=== PATIENT | female | born 1995 | race Caucasian/White ===

== ENCOUNTER 2020-04-11 10:25 | Outpatient (CLI) | payer BC, SELFPAY ==
[2020-04-11 11:18] LABS: Add Urine Microscopic? YES; Appearance Urine Clear (Clear); Bilirubin Urine Negative (Negative); Blood Urine 2+ (Negative); Color Urine Yellow (Yellow); Glucose Urine UA Negative (Negative); Ketones Urine Negative (Negative); Leukocyte Esterase Ur Negative LEU/UL (NEGATIVE); Mucus Urine Rare /lpf; Nitrate Urine Negative (Negative); Protein Urine Negative (Negative); Specific Grav Ur 1.019 (1.001-1.035); Squamous Epithelial Cell Urine Occasional /hpf (Few); Urobilinogen Urine Negative mg/dL (<2.0); WBC Urine 0-3 /hpf (0-3)
== END 2020-04-11 10:26 | disposition home or self-care (01) ==
LOC: ANHLAB 10:27
PROVIDERS: PCP Internal Medicine; Visit Provider Physician Assistant
DX: R35.0 Frequency of micturition (principal)
CPT/HCPCS: 81001; 87086

== ENCOUNTER 2022-04-23 09:15 | Outpatient (CLI) | payer OTHER, SELFPAY ==
[2022-04-23 10:18] LABS: Strep Group A RT-PCR NOT DETECTED (Negative)
[2022-04-23 10:51] LABS: Influenza A QL RT-PCR Negative (Negative); Influenza B QL RT-PCR Negative (Negative)
== END 2022-04-23 09:16 | disposition home or self-care (01) ==
PROVIDERS: PCP Physician Assistant; Visit Provider Internal Medicine
DX: J02.9 Acute pharyngitis, unspecified (principal)
CPT/HCPCS: 87502; 87651

== ENCOUNTER 2023-04-19 20:42 | Emergency (ER) | payer OTHER, MEDICAID, SELFPAY ==
--- NOTE | ~2023-04-19 | XR_ITS ---
EXAMINATION: XR chest 2V Exam Date/Time: 04/19/2023 21:00 [facility] HISTORY: cp MID/ANTERIOR X 5 DAYS Comparison: None. RESULT: Lines, tubes, and devices: None. Lungs and pleura: Clear. Cardiomediastinal silhouette: Normal. Other: No acute osseous or upper abdominal finding. IMPRESSION: No acute cardiopulmonary process. Reviewed, dictated and finalized at location [facility]. [facility] REEF NET
--- NOTE | 2023-04-19 20:48 | ECG_ITS ---
Measurements Intervals [place] Rate: 112 P: 60 HI: 160 QRS: 31 QRSD: 77 T: 48 QT: 339 QTc: 463 Interpretive Statements SINUS TACHYCARDIA POSSIBLE LEFT ATRIAL ENLARGEMENT ABNORMAL ECG NO PREVIOUS ECG AVAILABLE FOR COMPARISON Electronically Signed On 04-20-2023 6:19:01 [employer]SEM[employer] by Sebastian Sharp D.O.
[2023-04-19 20:53] VITALS: BP 131/75; PULSE 114; RESP 16; TEMP 36.4; O2SAT 100
[2023-04-19 21:10] LABS: Basophils Percent Auto 0.4 % (0.2-1.2); Eosinophils Absolute Auto 0.1 K/mm3 (0-0.3); Eosinophils Percent Auto 1.2 % (0-4.4); Hemoglobin 11.9 g/dL (12.0-15.0); Immature Granulocyte Absolute 0.05 K/mm3 (0.00-0.031); Immature Granulocyte Percent A 0.5 % (0-0.5); Lymphocytes Absolute Auto 2.57 K/mm3 (0.9-3.2); Lymphocytes Percent Auto 24.8 % (18.3-44.2); Mean Corpuscular HGB Conc 33.1 g/dl (32-36); Mean Corpuscular Hemoglobin 28.4 pg (26-34); Mean Corpuscular Volume 85.9 fl (80-100); Mean Platelet Volume 9.4 fl (7.4-10.4); Monocytes Absolute Auto 0.7 K/mm3 (0.1-0.6); Monocytes Percent Auto 6.6 % (2.6-8.5); Neutrophils Absolute Auto 6.9 K/mm3 (1.3-6.7); Neutrophils Percent Auto 66.5 % (45.5-73.1); Platelet Count Result 258 k/mm3 (150-375); Red Blood Count 4.19 M/mm3 (4.2-5.4); Red Cell Distribution Width 13.3 % (11.5-14.5); White Blood Count 10.4 K/mm3 (4.5-10.0)
[2023-04-19 21:20] LABS: Alanine Aminotransferase 17 U/L (6-35); Albumin Level 3.9 g/dL (3.5-5.1); Alkaline Phosphatase 139 U/L (38-126); Anion Gap 9 mmol/L (8-16); Aspartate Amino Transferase 19 U/L (14-36); Bilirubin,Total 0.4 mg/dL (0.2-1.3); Blood Urea Nitrogen 11 mg/dL (7-17); Carbon Dioxide 22 mmol/L (22-30); Chloride 107 mmol/L (98-107); Estimated CRCL calculation 141 ml/min; Estimated Glomerular Filt Rate > 60; Glucose 108 mg/dL (65-110); Lipase 78 U/L (23-300); Potassium 3.9 mmol/L (3.4-5.0); Sodium 138 mmol/L (137-145)
[2023-04-19 21:26] LABS: Partial Thromboplastin Time 22.8 SECONDS (22.3-36.8); Prothrombin Time 14.1 Seconds (11.1-14.7)
[2023-04-19 21:31] LABS: Troponin I < 0.012 ng/mL (0.000-0.034)
[2023-04-19 22:21] VITALS: PULSE 106
[2023-04-19 22:22] VITALS: O2SAT 100
[2023-04-19 22:25] VITALS: BP 117/71; PULSE 107; RESP 23; TEMP 36.8; O2SAT 100
[2023-04-19 23:19] VITALS: BP 117/61; PULSE 106; RESP 20; O2SAT 99
[2023-04-20 00:32] LABS: Troponin I < 0.012 ng/mL (0.000-0.034)
--- NOTE | 2023-04-20 01:05 | ED.GENADULT ---
HPI - General Adult General Chief complaint: Chest Pain Stated complaint: chest pain Time Seen by Provider: 04/19/23 22:15 History of Present Illness HPI narrative: Patient is a 27-year-old female presents emerged from with chief complaint of chest discomfort. The patient reports since Tuesday she has been having pain in her chest number said a fluttering sensation in her chest. Patient states pain is currently approximately a 2/10 patient denies shortness of breath denies diaphoresis denies radiation to her left arm. Patient reports no prior history of cardiac disease no history of thromboembolic disease Related Data Allergies Allergy/AdvReac Type Severity Reaction Status Date / Time No Known Allergies Allergy Verified 01/14/23 07:56 Review of Systems Review of Systems: A 10 system review of systems was completed on the patient and is negative except for what is stated in the HPI. Nursing and ancillary documentation was reviewed. ON LICENSE OF [facility] Family History Family History Father Patient's father is in good health Mother Family history of malignant neoplasm, Onset Age: 50 Social History Social History Smoking status: Never smoker Second hand tobacco smoke exposure: No Alcohol intake: current Substance use: unknown Current Housing: Decline to Answer Concerned About Future Housing: Decline to Answer Difficulty Paying Gas/Electric Bills: Decline to Answer Difficulty Paying for Meds: Decline to Answer Currently Unemployed: Decline to Answer Education: Decline to Answer Difficulty w/ Childcare or Family Care: Decline to Answer Exam Narrative: GENERAL: Well-appearing, well-nourished, and in no acute distress. HEAD: Normocephalic, atraumatic. EYES: PERRLA and EOMI. ENT: Nares clear, no rhinorrhea or epistaxis. Mucous membranes moist. NECK: Supple. CHEST: Clear to auscultation. No respiratory distress. HEART: Regular rate and rhythm. No murmur heard. Normal peripheral pulses. ABDOMEN: Soft, nontender, nondistended, normal active bowel sounds. EXTREMITIES: Normal range of motion. No edema. SKIN: Warm, dry, no rash. NEURO: No focal deficits. Alert and oriented x3. PSYCH: Normal mood and affect. Course Vital Signs Vital signs: Vital Signs Temperature 36.4 C 04/19/23 20:53 Pulse Rate 114 H 04/19/23 20:53 Respiratory Rate 16 04/19/23 20:53 Blood Pressure 131/75 04/19/23 20:53 Pulse Oximetry 100 04/19/23 20:53 Temperature 36.8 C 04/19/23 22:25 Pulse Rate 115 H 04/20/23 01:16 Respiratory Rate 17 04/20/23 01:16 Blood Pressure 110/53 L 04/20/23 01:16 Pulse Oximetry 100 04/20/23 01:16 Oxygen Delivery Room Air 04/19/23 22:25 Medical Decision Making MDM Narrative Medical decision making narrative: Differential diagnosis includes ACS, noncardiac chest pain, electrolyte abnormality, pneumothorax, Chest x-ray showed no focal findings EKG showed no acute ischemic changes Initial troponin was less than 0.012 delta troponin is less than 0.012 Vital Signs Vital Signs: Vital Signs Temperature 36.4 C 04/19/23 20:53 Pulse Rate 114 H 04/19/23 20:53 Respiratory Rate 16 04/19/23 20:53 Blood Pressure 131/75 04/19/23 20:53 Pulse Oximetry 100 04/19/23 20:53 Temperature 36.8 C 04/19/23 22:25 Pulse Rate 115 H 04/20/23 01:16 Respiratory Rate 17 04/20/23 01:16 Blood Pressure 110/53 L 04/20/23 01:16 Pulse Oximetry 100 04/20/23 01:16 Oxygen Delivery Room Air 04/19/23 22:25 Lab Data 04/19/23 21:03 04/19/23 21:03 Labs: Lab Results 04/19/23 04/19/23 Range/Units 21:03 23:48 WBC 10.4 H (4.5-10.0) K/mm3 RBC 4.19 L (4.2-5.4) M/mm3 Hgb 11.9 L (12.0-15.0) g/dL Hct 36.0 L (37.0-47.0) % MCV 85.9 (80-100) fl MCH 28.4 (26-34) pg MC
[2023-04-20 01:16] VITALS: BP 110/53; PULSE 115; RESP 17; O2SAT 100
== END 2023-04-20 01:20 | disposition home or self-care (01) ==
PROVIDERS: Emergency Provider Emergency Medicine; PCP Physician Assistant
DX: R07.89 Other chest pain (principal)
CPT/HCPCS: 36415; 71046; 80053; 83690; 84484; 85025; 85610; 85730; 93005; 99284

== ENCOUNTER 2025-01-17 15:23 | Emergency (ER) | payer OTHER, SELFPAY ==
--- OUTSIDE RECORDS SUMMARY | 2025-01-17 15:26 | XMS_ITS | Clinical Summary ---
Author Organization [facility] Address [address] [place] [address] Care Team Providers Care Clarity Developer Name Role Phone Unavailable Primary Care Provider Unavailabl e Source Comments [facility],non-owned Affiliates and Associated Physician Practices is amultiple site organization consisting of ambulatory clinics and hospital sitesin [place], [place], [place] and [place]. This disclosure is being madepursuant to the Care Everywhere program and may not contain all information available regarding this patient. Last updated 18.[facility] [employer] Allergies No known active allergies Medications * Be aware that medications may not be up to date on this document. Alwaysverify current medications with the patient. amphetamine-dex troamphetamine XR 24hr (ADDERALL XR) 30 MG capsule Take 1 capsule by mouth every morning 30 capsule 11/13/2018 Active citalopram (CELEXA) 10 MG tablet 08/16/2018 Active DAYSEE 0.15-0.03 &0.01 MG tablet TAKE 1 TABLET DAILY 90 tablet 1 02/09/2019 Active Active Problems Problem Noted Date Diagnosed Date Anxiety 12/20/2017 Irregular periods 11/17/2015 Migraine 09/08/2012 ADHD (attention deficit hyperactivity disorder) 11/05/2010 Resolved Problems Problem Noted Date Diagnosed Date Resolved Date Nocturnal enuresis 11/05/2010 5 Immunizations Immunization Administration Dates Next Due DTaP VACCINE IM (6wk-6yrs) 09/14/2002,,06/09/1998,04/08,01/28/1998 HEP A PEDS 2 DOSE 12/10/2011,12/06/2008 HEP B VACCINE, PED/ADOL 08/04/1998,1997, HIB BOOSTER 02/04/2000, 9,04/08/1998,01/28 Human Papilloma Virus Miriam valent Vaccine 10/01/2014,02/19/2014,12/10/2011 INFLUENZA A F1I1-97 VACCINE 04/08/2009 INFLUENZA VACCINE, QUADR. (A FLURIA, FLUZONE QUADRIVALENT; 6MO+) (IIV4) 06/07/2017 Influenza Nasal 01/29/2011,04/18/2010 SHAAN VACCINE QUAD LAIV4 PF NASAL 02/19/2014 MENINGOCOCCAL ACWY (MCV4P) VAC IM 01/02/2015,04/2015 MMR 09/14/2002,12/11/1998 POLIO IPV 09/14/2002, 9,04/08/1998,01/28 PPD 09/14/2002 TDAP (7yrs+) 12/06/2008 VARICELLA 05/03/1998 Social History Tobacco Use Types Packs/Day Years Used Date Smoking Tobacco: Never Smokeless Tobacco: Never Alcohol Use Standard Drinks/Week Comments Not Asked 0 (1 standard drink = 0.6 oz pur e alcohol) Comments No Sex and Gender Information Value Date Recorded Sex Assigned at Not on file Legal Sex Female 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 Gender Identity Not on file Sexual Orientation Not on file Last Filed Vital Signs Vital Sign Reading Time Taken Comments Blood Pressure 121/68 06/09/2018 9:03 AM HIGH RAW SUGAR BOILER Pulse 98 06/09/2018 9:03 AM HIGH RAW SUGAR BOILER Temperature 36.7 C (98.1 F) 05/03/2018 10:06 AM HIGH RAW SUGAR BOILER Respiratory Rate - - Oxygen Saturation - - Inhaled Oxygen Concentration - - Weight 59.1 kg (130 lb 3.2 oz) 06/09/2018 9:03 A M HIGH RAW SUGAR BOILER Height 156.2 cm (5' 1.5) 12/20/2017 9:28 AM CDT Body Mass Index 24.2 12/20/2017 9:28 AM CDT Plan of Treatment Health Maintenance Due Date Last Done Comments HIV SCREENING 2012 HEPATITIS C SCREENING 11/11/2015 DTAP/TDAP/TD VACCINES (7 - Td or Tdap) 12/06/2018 12/06/2008, 09/14/2002, 02/04/2000, Additional history exists COVID-19 VACCINE ( season) 2024 DEPRESSION SCREENING 05/23/2024 INFLUENZA VACCINE (#1) 2025 8, 02/19/2014, 01/29/2011, Additional history exists ZOSTER VACCINE (1 of 2) 11/16/2047 HEPATITIS B VACCINE Completed 08/04/1998, 1997, 1997 HIB VACCINE Completed 02/04/2000, 05/23, 04/08/1998, Additional history exists HPV VACCINE Completed 10/01/2014, 01/23, 12/10/2011 MENINGOCOCCAL GROUPS A/C/Y/W VACCINE Completed 01/02/2015, 10/01/2014 MENINGOCOCCAL (Group B) VACCINE SHARED DECISION-MAKING Aged Out No longer eligible based on patient's age to complete this topic PNEUMOCOCCAL VACCINE Aged Out No long er eligible based on patient's age to complete this topic Goals Goal Patient Goal Type Associated Problems Recent Progress Patient-Stated? Author SSTegan Lifestyle: Use safety retraint in car Lifestyle On track( 018 10:06 AM HIGH RAW SUGAR BOILER) Karen Ortiz, RN Insurance HALLIE * Guarantor: CHRISTIN SKAGGS Account Type Relation to Patient Date of Phone Billing Address Personal/Family 1995 [place] KIAN[place] SKAGGS [address] [facility] [place]
--- OUTSIDE RECORDS SUMMARY | 2025-01-17 15:26 | XMS_ITS | Clinical Summary ---
Author Organization [facility] Address [facility] [place] [address] Care Team Providers Care Enrollment Specialist Name Role Phone Clemente Castano MD Primary Care Provider [phone] Allergies No known active allergies Medications Etonogestrel-Eth inyl Estradiol 0.12-0.015 MG/24HR RING Place 1 Device vaginally monthly. 0 Active hydrOXYzine (ATARAX) 25 MG tabletIndication s:LARISA (generalized anxiety disorder) TAKE 1 TABLET BY MOUTH 3 TIMES DAILY NEEDED FOR ANXIETY. 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 Max of 4 tablets (200 mg) in 24 hours. 8 tablet 2 4 Active phentermine (ADIPEX-P) 37.5 MG capsuleIndicatio ns:Class 2 severe obesity due to excess calories with serious comorbidity and body mass index (BMI) of 37.0 to 37.9 in adult (CMS/HCC) Take 1 capsule (37.5 mg total) by mouth before breakfast. 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,LARISA (generalized anxiety disorder) TAKE 1 CAPSULE BY MOUTH EVERY DAY 90 capsule 4 Active Active Problems Problem Noted Date Diagnosed Date ADHD 05/02/2023 LARISA (generalized anxiety disorder) 05/02/2023 UTI (urinary tract infection) 10/02/2019 Immunizations Immunization Administration Dates Next Due Dtap (Acel-Immune) 09/14/2002, 0,06/09/1998,04/08/1998, H1N1 2009 Influenza Vaccine 04/08/2009 HPV4 (Gardasil) 10/01/2014,02/19/2014,12/10/2011 Hepatitis A (Havrix [address]) 12/10/2011, 009 Hepatitis B Pediatric 08/04/1998,1997,10/22 Hib (Generic) 06/09/1998,04/08/1998,01/28/1998 Hib (Prohibit) 02/04/2000 Influenza (FluMist) 02/19/2014,01/29/2011,2009 Influenza Adult (Generic) 06/07/2017 MMR (MMRII) 09/14/2002,12/11/1998 Meningococcal (Menactra) 01/02/2015,10/01/2014 Polio IPV (Ipol) 09/14/2002,05/09/1999, 8,01/28/1998 Tdap (Adacel) 05/04/2023 Tdap (Generic) 12/06/2008 Varicella (Varivax) 05/03/1998 Social History Tobacco Use Types Packs/Day Years Used Date Smoking Tobacco: Never Smokeless Tobacco: Never Tobacco Cessation:Counseling Given: Yes Comments:Counseled by Dr Castano. Alcohol Use Standard Drinks/Week Comments Yes 0 (1 standard drink = 0.6 oz pur e alcohol) <1/week PHQ-2 Answer Date Recorded Patient Health Questionnaire-2 Score 0 06/14/2023 Comments No Sex and Gender Information Value Date Recorded Sex Assigned at Not on file Legal Sex Female 4:43 PM CDT Gender Identity Not on file Sexual Orientation Not on file Last Filed Vital Signs Vital Sign Reading Time Taken Comments Blood Pressure 121/72 10/07/2023 2:11 PM CDT Pulse 80 10/07/2023 2:11 PM CDT Temperature 36.4 C (97.6 F) 10/07/2023 2:11 PM CDT Respiratory Rate 18 10/07/2023 2:11 PM CDT Oxygen Saturation 100% 10/07/2023 2:11 PM CDT Inhaled Oxygen Concentration - - Weight 85.5 kg (188 lb 6.4 oz) 10/07/2023 2:11 P M CDT Height 154.9 cm (5' 1) 10/07/2023 2:11 PM CDT Body Mass Index 35.6 10/07/2023 2:11 PM CDT Plan of Treatment Health Maintenance Due Date Last Done Comments COVID-19 Vaccine ( season) 2024 06/11/2021, 05/21/2021 Annual Physical 05/02/2024 05/02/2023 PHQ-2 (Physician Habematolel) 05/23/2024 06/14/2023 Cervical Cancer Screening Pap Smear (Age 21 to 29) Every 3 Years 05/27/2025 05/27/2022 Cervical Cancer Screening 05/27/2025 DTaP, Tdap and Td Vaccines (8 - Td or Tdap) 05/04/2033 05/04/2023, 12/06/2008, 09/14/2002, Additional history exists Hepatitis B Vaccines Completed 08/04/1998, 1997, 1997 HPV Vaccines Completed 10/01/2014, 01/23, 12/10/2011 Meningococcal Vaccine Completed 01/02/2015, 015 Hepatitis C Completed 06/14/2023 Meningococcal B Vaccine Aged Out No l onger eligible based on patient's age to complete this topic Pneumococcal Vaccine: Pediatrics (0 to 5 Years) and At-Risk Patients (6 to 49 Years) Aged Out No longer eligible based on patient's age to complete this topic RSV Immunizations Under 20 Months Aged Out No longer eligible based on patient's age to complete this topic Procedures Procedure Name Priority Date/Time Associated Diagnosis Comments HEPATITIS C ANTIBODY Routine 06/14/2023 7:24 AM COUNTERINTELLIGENCE SPECIALIST Annual physical exam Establishing care with new doctor, encounter for General medical exam Encounter for hepatitis C screening test for low risk patient OUTSIDE CYTOPATH CERV/VAG INTERPRET (PAP) (SCAN ORDER) 05/27/2022 from Last 3 Months or Most Recently Relevant to Health Maintenance Results * HEPATITIS C ANTIBODY (06/14/2023 7:24 AM COUNTERINTELLIGENCE SPECIALIST) HEPATITIS C AB NON-REACTI VE NON-REACT IASK 06/14/2023 7:04 PM COUNTERINTELLIGENCE SPECIALIST [facility] Comment: ANTIBODIES TO HCV NOT DETECTED. DOES NOT EXCLUDE THE POSSIBILITY OF EXPOSURE TO HCV. 06/14/2023 7:24 AM COUNTERINTELLIGENCE SPECIALIST Clemente Castano MD LABORATORY Final Result [facility] [address] [place] [address], [place] [phone] [id number] * PAP SMEAR (SCAN ORDER) (05/27/2022) 05/27/2022 [facility] Scanned SCANNING Final Resu lt from Last 3 Months or Most Recently Relevant to Health Maintenance Additional Health Concerns Infection Onset Date Last Indicated ESBL - Extended Spectrum Bet a-lactamase Comment:Urine 10/02/2019 10/08/2019 10/08/2019 Insurance [employer] MEDICAID Advance Directives * Full Code (Latest Code Status on File) Date Activated Date Inactivated Comments 10/02/2019 10:02 PM 10/03/2019 12:50 PM Care Teams Enrollment Specialist Relationship Specialty Start Date End Date Clemente Castano MD [address] [facility] [address] [place] [id number] PCP - General INTERNAL MEDICINE 05/02/23
--- OUTSIDE RECORDS SUMMARY | 2025-01-17 15:26 | XMS_ITS | Clinical Summary ---
Author Organization [facility] Address [address] [place] [address] Care Team Providers Care Critical Care Physician Assistant Name Role Phone Larisa Perrin MD Unavailable Clemente Castano MD Primary Care Provider [phone] Allergies No known active allergies Medications Adderall XR 30 mg 24 hr capsule Take 1 capsule (30 mg total) by mouth daily 07/29/2009 Active etonogestreL-et hinyl estradioL (NUVARING, ELURYNG) 0.12-0.015 mg/24 hr vaginal ring Insert 1 each into the vagina every 4 (four) weeks 09/29/2019 Active venlafaxine XR (EFFEXOR-XR) 37.5 mg 24 hr capsule Take 1 capsule (37.5 mg total) by mouth daily 06/14/2023 Active SUMAtriptan (IMITREX) 50 mg tablet Take 1 tablet (50 mg total) by mouth 2 (two) times a day as needed 06/14/2023 Active Active Problems Problem Noted Date Diagnosed Date At high risk for breast cancer 08/03/2023 Family history of breast cancer 08/03/2023 Surgical History Surgery Date Site/Laterality Comments WISDOM TOOTH EXTRACTION 05/23/2016 - 05/22/2017 Medical History Medical History Date Comments Anxiety ADHD (attention deficit hyperactivity disorder) Family History Medical History Relation Name Comments Colon cancer Maternal Grandmother Bone cancer Mother Brain cancer Mother Breast cancer Mother Relation Name Status Comments Maternal Grandmother Mother Social History Tobacco Use Types Packs/Day Years Used Date Smoking Tobacco: Never Tobacco Cessation:Counseling Given: Not Answered AUDIT-C Answer Date Recorded Frequency of Alcohol Consumption Not on file 08/03/2023 Q2: How many drinks containi ng alcohol do you have on a typical day when you are drinking? 1 or 2 08/03/2023 Q3: How often do you have si x or more drinks on one occasion? 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 Gender Identity Not on file Sexual Orientation Not on file Obstetrics History Last Filed Vital Signs Vital Sign Reading Time Taken Comments Blood Pressure 126/87 08/03/2023 12:18 PM CDT Pulse 108 08/03/2023 12:18 PM CDT rn notified Temperature 36.8 C (98.3 F) 08/03/2023 12:18 PM CDT Respiratory Rate 18 08/03/2023 12:1 8 PM CDT Oxygen Saturation 97% 08/03/2023 12: 18 PM CDT Inhaled Oxygen Concentration - - Weight 86.9 kg (191 lb 9.6 oz) 08/03/19 24 12:18 PM CDT Height 156.2 cm (5' 1.5) 08/03/2023 12 :18 PM CDT Body Mass Index 35.62 08/03/2023 12:18 PM CDT Plan of Treatment Health Maintenance Due Date Last Done Comments Cervical Cancer Screening 1997 Depression Screening 1997 Hepatitis C Screening 1997 Varicella Vaccines (1 of 2 - 13+ 2-dose series) 2010 05/03/1998 Regular Well Visit/Exam 18-64 11/16/2015 Covid-19 Vaccine ( season) 2024 06/11/2021, 05/21/2021 Influenza Vaccine (#1) 2025 8, 02/19/2014, 02/19/2014, Additional history exists DTaP/Tdap/Td Vaccine (8 - Td or Tdap) 05/04/2033 05/04/2023, 12/06/2008, 09/14/2002, Additional history exists Hepatitis B Screening Completed 08/04/1998 , 1997, 1997 HPV Vaccines Completed 10/01/2014, 01/23, 12/10/2011 Pneumococcal vaccine <65 Aged Out No longer eligible based on patient's age to complete this topic Insurance [facility] HMO IDPA Care Teams Critical Care Physician Assistant Relationship Specialty Start Date End Date Clemente Castano MD [address] [facility] [address] [place] [address] PCP - General Internal Medicine 08/03/23 Larisa Perrin MD [address] [facility] [address], [address] [place] [address] Surgeon Breast Surgery 06/14/23
--- OUTSIDE RECORDS SUMMARY | 2025-01-17 15:26 | XMS_ITS | Encounter Summary ---
Author Organization [facility] Address [facility] [place] [address] Care Team Providers Care Senior Supplier Quality Engineer Name Role Phone Clemente Castano MD Primary Care Provider [phone] Encounter Details Date Type Department Care Team (Late st Contact Info) Description 08/24/2023 crobot Message Enc [facility] - [place] [address] [place] [address] [address] [place] [address] [place] [address] [place] [address] [address] [place] [address] My medicine Social History Tobacco Use Types Packs/Day Years Used Date Smoking Tobacco: Never Smokeless Tobacco: Never Comments:Counseled by Dr Ivy mart. Alcohol Use Standard Drinks/Week Comments Yes 0 (1 standard drink = 0.6 oz pur e alcohol) <1/week PHQ-2 Answer Date Recorded Patient Health Questionnaire-2 Score 0 06/14/2023 Comments No Sex and Gender Information Value Date Recorded Sex Assigned at Not on file Legal Sex Female 4:43 PM CDT Gender Identity Not on file Sexual Orientation Not on file documented as of this encounter Functional Status * RETIRED Are you deaf or do you have serious difficulty hearing Answer Date of Assessment Author Status No 10/02/2019 10:48 PM CDT Acti ve * RETIRED Are you blind or do you have serious difficulty seeing, even when wearing glasses? Answer Date of Assessment Author Status No 10/02/2019 10:48 PM CDT Acti ve * Do you have serious difficulty walking or climbing stairs? Answer Date of Assessment Author Status No 10/02/2019 10:48 PM CDT Katherine Fisher R N Active * Do you have difficulty dressing or bathing? Answer Date of Assessment Author Status No 10/02/2019 10:48 PM CDT Katherine Fisher R N Active * Because of a physical, mental, or emotional condition, do you have difficulty doing errands alone such as visiting a doctor's office or shopping? Answer Date of Assessment Author Status No 10/02/2019 10:48 PM CDT Katherine Fisher R N Active documented as of this encounter Mental Status * Because of a physical, mental, or emotional condition, do you have serious difficulty concentrating, remembering, or making decisions? Answer Entry Date Author Status No 10/02/2019 10:48 PM CDT Katherine Fisher R N Active documented in this encounter Plan of Treatment Not on file documented as of this encounter Visit Diagnoses Not on filedocumented in this encounter Additional Health Concerns Infection Onset Date Last Indicated Resolved Time ESBL - Extended Spectrum Bet a-lactamase Comment:Urine 10/02/2019 10/08/2019 10/08/2019 Assessment Noted Time PHQ-9 Depression Total Score: 0 06/14/19 24 7:14 AM HIGH LIFT DRIVER documented as of this encounter Care Teams Senior Supplier Quality Engineer Relationship Specialty Start Date End Date Clemente Castano MD [facility] [address] PCP - General INTERNAL MEDICINE 05/02/23 documented as of this encounter
--- OUTSIDE RECORDS SUMMARY | 2025-01-17 15:26 | XMS_ITS | Encounter Summary ---
Author Organization [facility] Address [facility] [place] [address] Care Team Providers Care Health Care Legal Assistant Name Role Phone Clemente Castano MD Primary Care Provider [phone] Encounter Details Date Type Department Care Team (Latest Contact Info) Description 07/21/[address] [facility] - [place] [address] [place] [address] [address] [place] [address] [place] [address] [place] [address] [address] [place] [address] Bloodwork and my weight Social History Tobacco Use Types Packs/Day Years [...] Date Author Status No 10/02/2019 10:48 PM Katherine Samuels R N Active documented in this encounter Plan of Treatment Not on file documented as of this encounter Visit Diagnoses Not on filedocumented in this encounter Additional Health Concerns Infection Onset Date Last Indicated Resolved Time ESBL - Extended Spectrum Bet a-lactamase Comment:Urine 10/02/2019 10/08/2019 10/08/2019 Assessment Noted Time PHQ-9 Depression Total Score: 0 06/14/19 24 7:14 AM HEATER MECHANIC documented as of this encounter Care Teams Health Care Legal Assistant Relationship Specialty Start Date End Date Clemente Castano MD [address] [address] PCP - General INTERNAL MEDICINE 05/02/23 documented as of this encounter
--- OUTSIDE RECORDS SUMMARY | 2025-01-17 15:26 | XMS_ITS | Clinical Summary ---
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 Gender Identity Not on file Sexual Orientation Not on file Plan of Treatment Health Maintenance Due Date Last Done Comments Hepatitis C Virus (HCV) Screening 1997 TdaP Immunization 1997 Human Papillomavirus (HPV) Immunization (3 - 3-dose series) 12/24/2014 10/01/2014, 02/19/2014 SARS-COV-2 Immunization ( season) 2024 Influenza Immunization (#1) 01/21/202505/23, 02/19/2014 Respiratory Syncytial Virus (RSV) Immunization (Adult) (1 - 1-dose 75+ series) 2072 DTaP/Tdap/Td Immunization Discontinued 1998, 04/08/1998, 01/28/1998 Hepatitis B Immunization Completed 999, 1997, 1997 Meningococcal Immunization (ACWY) Completed 01/02/2015, 10/01/2014 Pneumococcal Immunization Combined Aged Out No longer eligible based on patient's age to complete this topic Rotavirus Immunization Aged Out No lo nger eligible based on patient's age to complete this topic
--- OUTSIDE RECORDS SUMMARY | 2025-01-17 15:26 | XMS_ITS | Encounter Summary ---
Author Organization [facility] - [facility] Address [facility] [place] [address] Care Team Providers Care Char House Supervisor Name Role Phone Clemente Castano MD Primary Care Provider [phone] Encounter Details Date Type Department Care Team (Late st Contact Info) Description 06/15/2023 [place]ole Message Enc [facility] Multispecialty Care - [address] [place] [address] Mychart, [facility] Provider Lab results Social History Tobacco Use Types Packs/Day Years [...] Assessment Author Status No 10/02/2019 10:48 PM Katherine Samuels R N Active documented as of this encounter Mental Status * Because of a physical, mental, or emotional condition, do you have serious difficulty concentrating, remembering, or making decisions? Answer Entry Date Author Status No 10/02/2019 10:48 PM CDKatherine Campoverde R N Active documented in this encounter Plan of Treatment Not on file documented as of this encounter Visit Diagnoses Not on filedocumented in this encounter Additional Health Concerns Infection Onset Date Last Indicated Resolved Time ESBL - Extended Spectrum Bet a-lactamase Comment:Urine 10/02/2019 10/08/2019 10/08/2019 Assessment Noted Time PHQ-9 Depression Total Score: 0 06/14/19 24 7:14 AM [employer] documented as of this encounter Care Teams Char House Supervisor Relationship Specialty Start Date End Date Clemente Castano MD [address] [address] PCP - General INTERNAL MEDICINE 05/02/23 documented as of this encounter
--- OUTSIDE RECORDS SUMMARY | 2025-01-17 15:26 | XMS_ITS | Encounter Summary ---
Author Organization [facility] Address [address] [place] [address] Care Team Providers Care Edger Runner Name Role Phone Sil Womack MD Unavailable Sil Womack MD Primary Care Provider [phone] Nina Loyola MD Primary Care Provider [phone] Encounter Details Date Type Department Care Team (Late st Contact Info) Description 10/14/2012 [facility] Outpatient Visit CG DEFAULT [address] [place] [address] Unknown, Provider Social History Tobacco Use Types Packs/Day Years Used Date Smoking Tobacco: Never Alcohol Use Standard Drinks/Week Comments Not Asked 0 (1 standard drink = 0.6 oz pur e alcohol) Comments No Sex and Gender Information Value Date Recorded Sex Assigned at Not on file 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
[2025-01-17 15:35] VITALS: BP 136/78; PULSE 111; RESP 17; TEMP 36.6; O2SAT 99
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
== END 2025-01-17 17:11 | disposition home or self-care (01) ==
PROVIDERS: Emergency Provider Physician Assistant; PCP Nurse Practitioner Family
DX: Z04.3 Encounter for examination and observation following other accident (principal); V49.50XA Passenger injured in collision with unspecified motor vehicles in traffic accident, initial encounter
CPT/HCPCS: 99283

== ENCOUNTER 2025-02-21 05:20 | Emergency (ER) | payer OTHER, SELFPAY ==
[2025-02-21 05:25] VITALS: BP 117/61; PULSE 89; RESP 18; TEMP 36.8; O2SAT 100
--- NOTE | 2025-02-21 05:35 | ED_ITS ---
HPI - Female Genitourinary General Chief complaint: Urogenital-Female Stated complaint: recent uti; now back pain Time Seen by Provider: 02/21/25 05:23 Source: patient and family Mode of arrival: ambulatory Limitations: no limitations History of Present Illness HPI Narrative: Fifth through the 29-year-old female with history of anxiety who presents to the ED for urinary frequency and low back pain. Patient states that 3 days ago, she began to experience urinary frequency. She was seen at [facility] for this and was diagnosed with UTI. She has been on Macrobid since then. She states that she was woken up this morning with severe worsening of her low back pain that last 10 minutes before improving. She has not had pain like this before. Denies fevers, chills nausea, abdominal pain, hematuria. [facility] 02/19 Related Data Home Medications ?Medication ?Instructions ?Recorded ?Confirmed ?Last Taken ?Type semaglutide 1 mg/dose (2 mg/1.5 0.5 mg subcut WEEKLY 0 07/04/24 01/23/25 Unknown History mL) subcutaneous pen injector Allergies Allergy/AdvReac Type Severity Reaction Status Date / Time No Known Allergies Allergy Verified 02/21/25 05:21 Review of Systems Review of Systems: Gen.: Denies fevers or chills Eyes: Denies eye pain or visual change ENT: Denies congestion Respiratory: Denies shortness of breath or cough CV: Denies chest pain or palpitations GI: Denies abdominal pain nausea, emesis or diarrhea as per HPI Musculoskeletal: As per HPI Neuro: Denies numbness, tingling, weakness or focal weakness Skin: Denies rash Except as documented, all other systems reviewed and negative [facility] Family History Family History Father Patient's father is in good health Mother Family history of malignant neoplasm, Onset Age: 50 Social History Social History Smoking status: Never smoker Second hand tobacco smoke exposure: No Alcohol intake: current Substance use: unknown Other substance usage details: used to take THC gummies for anxiety but no longer does Current Housing: Decline to Answer Concerned About Future Housing: Decline to Answer Difficulty Paying Gas/Electric Bills: Decline to Answer Difficulty Paying for Meds: Decline to Answer Currently Unemployed: Decline to Answer Education: Decline to Answer Difficulty w/ Childcare or Family Care: Decline to Answer Living arrangements: with family Additional living arrangements comments: lives with Aunt and Uncle Occupation/Education: occupation 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 Course Vital Signs Vital signs: Vital Signs Temperature 98.3 F 02/21/25 05:25 Pulse Rate 89 02/21/25 05:25 Respiratory Rate 18 02/21/25 05:25 Blood Pressure 117/61 02/21/25 05:25 Pulse Oximetry 100 02/21/25 05:25 Oxygen Delivery Room Air 02/21/25 05:25 Temperature 98.3 F 02/21/25 05:25 Pulse Rate 89 02/21/25 05:25 Respiratory Rate 18 02/21/25 05:25 Blood Pressure 107/60 02/21/25 06:01 Pulse Oximetry 99 02/21/25 06:01 Oxygen Delivery Room Air 02/21/25 05:25 MDM - Female Genitourinary MDM Narrative Medical decision making narrative: 29-year-old female presenting to the ED for low back pain and urinary frequency. On initial evaluation, patient was in no acute distress, afebrile, hemodynamically stable. She had no reproducible tenderness to palpation to the spine. Abdomen is soft and nontender. UA did show white blood cells and leukocyte esterase but no hematuria. On further discussion with the patient, she did have a chiropractic adjustment yesterday in the same location of her pain. Suspect this may be the source of her discomfort this morning. She was given Toradol with improvement of her symptoms. Suspect that she milk likely has a muscle spasm/muscle strain. She will be given a prescription for Flexeril and Lidoderm. She was educated on Tylenol and ibuprofen use. Patient and family were agreeable to this plan. Given strict return precautions. Differential Diagnosis Differential diagnosis: Likely urinary tract infection, cystitis, dysmenorrhea and other (Muscle strain, pyelonephritis, kidney stone) Medical Records Attestation: I reviewed the patient's medical records. Lab Data Attestation: I reviewed the patient's lab results. Labs: Lab Results 02/21/25 Range/Units 05:35 Urine Color Yellow (Yellow) Urine Appearance Clear (Clear) Urine pH 6.0 (5.0-9.0) Ur Specific [place] 1.009 (1.001-1.035) Urine Protein Negative (Negative) mg/dL Urine Glucose (UA) Negative (Negative) mg/dL Urine Ketones 2+ H (Negative) mg/dL Ur Blood (Man) Trace (Negative) Urine Nitrate Negative (Negative) Urine Bilirubin Negative (Negative) Urine Urobilinogen 0.2 (<2.0) mg/dL Leukocyte Esterase Rfl 1+ H (Negative) RAJAN/UL Urine RBC 0-2 (0-2) /hpf Urine WBC 6-10 H (0-3) /hpf Ur Squamous Epith Cells None seen (Few) /hpf Urine Bacteria None seen /hpf Urine Casts 0-2 Urine Test Negative Discharge Plan Discharge Clinical Impression: Back pain Qualifiers: Back pain location: low back pain Chronicity: acute Back pain laterality: bilateral Sciatica presence: without sciatica Qualified Code(s): M54.50 - Low back pain, unspecified Patient Disposition: Home Condition: Stable Instructions: Antibiotic Form, Urinary Tract Infection in Women (ED), Acute Low Back Pain (ED) Additional Instructions: Take Tylenol and ibuprofen for your pain. Take Flexeril and Lidoderm as prescribed. You may also try azo if you believe this is due to bladder spasms. Continue to take the Macrobid as prescribed. Follow-up with your PCP in the next week for re-evaluation. Return to the ED for any new or worsening symptoms. Patient Language: St Helenian Prescriptions: New cyclobenzaprine 10 mg tablet 10 mg PO HS PRN (Reason: muscle spasm) Qty: 30 0RF lidocaine [Lidoderm] 5 % adhesive patch,medicated 1 patch topical DAILY Qty: 15 0RF Rx Instructions: leave on most painful area for up to 12 hrs No Action trazodone 50 mg tablet 50 mg PO QHS Qty: 90 1RF venlafaxine 75 mg capsule,extended release 24hr See Rx Instructions .ROUTE .COMPLEX Qty: 90 1RF Dose Instruction: TAKE 1 CAPSULE BY MOUTH DAILY Rx Instructions: TAKE 1 CAPSULE BY MOUTH DAILY norethindrone-e.estradiol-iron [Loestrin Fe 06/11 (28-Day)] 1 mg-20 mcg (21)/75 mg (7) tablet 1 tablet PO DAILY Qty: 84 3RF semaglutide 1 mg/dose (2 mg/1.5 mL) pen injector 0.5 mg subcut WEEKLY naproxen 500 mg tablet 500 mg PO BID Qty: 30 0RF cyclobenzaprine 5 mg tablet 5 mg PO TID PRN (Reason: muscle spasm) Qty: 10 0RF lidocaine 5 % adhesive patch,medicated 1 patch topical DAILY Qty: 15 0RF Rx Instructions: leave on most painful area for up to 12 hrs Follow-up/Referrals: Danuta Guerin APRN [Primary Care Provider, Family Practice]
[2025-02-21 05:36] VITALS: O2SAT 100
[2025-02-21 05:37] VITALS: BP 117/61; O2SAT 100
[2025-02-21 05:45] VITALS: O2SAT 99
[2025-02-21 05:45] LABS: Pregnancy On Board Control Positive
[2025-02-21 05:47] LABS: Add Urine Microscopic? YES; Appearance Urine Clear (Clear); Glucose Urine UA Negative (Negative); Leukocyte Esterase Ur 1+ LEU/UL (Negative); Nitrate Urine Negative (Negative); Non Pathogenic Casts 0-2; Specific Grav Ur 1.009 (1.001-1.035)
[2025-02-21] MEDS: KETOROLAC 30 MG/ML VIAL (*BKC) IM (05:47)
[2025-02-21 06:00] VITALS: O2SAT 99
[2025-02-21 06:01] VITALS: BP 107/60; O2SAT 99
== END 2025-02-21 06:10 | disposition home or self-care (01) ==
PROVIDERS: Emergency Provider Student in an Organized Health Care Education/Training Program; PCP Nurse Practitioner Family
DX: M54.50 Low back pain, unspecified (principal); N39.0 Urinary tract infection, site not specified; F41.9 Anxiety disorder, unspecified; Z79.3 Long term (current) use of hormonal contraceptives; Z79.899 Other long term (current) drug therapy
CPT/HCPCS: 81001; 81025; 87086; 96372; 99283; J1885